=== PATIENT | female | born 1995 | race Caucasian/White ===

== ENCOUNTER → 2023-06-10 14:51 | Outpatient (CLI) | payer BC, SELFPAY ==
--- NOTE | ~2023-06-10 | US_ITS ---
EXAMINATION: US pelvic complete w TV DATE: 06/10/2023 15:27 INDICATION: Right lower quadrant abdomen pain Comparison:No prior studies for comparison. TECHNIQUE: Multiple transabdominal and endovaginal sonographic images of the pelvis performed. FINDINGS: The uterus measures 8.6 x 5.3 x 4.3 cm. The endometrial complex measures 13 mm. The right ovary measures 2.5 x 2.6 x 3.4 cm and the left ovary measures 3.1 x 1.9 x 1.9 cm. There ar e small follicles in each ovary. Normal doppler signal in both ovaries. There is no free fluid in the pelvis. There are no abnormal masses seen on either side. IMPRESSION: 1. Mild endometrial thickening measuring 13 mm. Reviewed, dictated and finalized at location L.
== END ==
PROVIDERS: PCP Family Medicine; Visit Provider Nurse Practitioner Family
DX: R10.9 Unspecified abdominal pain (principal)
CPT/HCPCS: 76830; 76856

== ENCOUNTER 2024-07-22 09:47 | Outpatient (CLI) | payer BC, SELFPAY ==
--- NOTE | ~2024-07-22 | US_ITS ---
US OB limited DATE: 07/22/2024 10:45 INDICATION: Evaluate growth TECHNIQUE: Real-time imaging and Doppler analysis COMPARISON: 03/29/2024 obstetrical ultrasound FINDINGS: Live read intrauterine gestation, fetus in longitudinal lie, vertex presentation. Feta l heart rate 142 bpm. Posterior fundal placenta; no previa. Amniotic fluid index measures 13.6 cm, within normal limits. (5th percentile KATIE: 7.5 cm; 95th percen tile KATIE: 24.4 cm) BPD: 9.11 cm; 37 weeks 0 days Head circumference 33.01 cm; 37 weeks 4 days Abdominal circumference 33.03 cm; 37 weeks 0 days Femur length 6.88 cm; 35 weeks 2 days Composite age by Hadlock formula based upon the current measurements would be 36 weeks 5 days +/- 2 w eeks 4 days with ZAHRA of 08/14/2024, compared to 08/07/2024 based on last menstrual period. Estimated weight: 2984 +/- 448 g EFW-GP: 31.5% Head circumference/abdominal circumference 1.00, within normal range is 0.92, 1.06 Femur length/BPD 75.52, within normal range of 71.0-87.0 Femur length/abdominal circumference: 20.83, within normal range of 20.00-24.00 Femur length/head circumference 20.84, within normal range of 20.60-22.46 IMPRESSION: Normal amniotic fluid index of 13.6 cm Vertex presentation Estimated weight: 2984 +/- 448 g Reviewed, dictated and finalized at Location A. Reviewed, dictated and finalized at location A.
== END 2024-07-22 09:48 | disposition home or self-care (01) ==
LOC: MICIMG 09:48
PROVIDERS: PCP Family Medicine; Visit Provider Obstetrics & Gynecology
DX: Z34.90 Encounter for supervision of normal pregnancy, unspecified, unspecified trimester (principal)
CPT/HCPCS: 76815

== ENCOUNTER 2024-08-11 08:30 | Outpatient (RCR) | payer BC, SELFPAY ==
[2024-08-08 11:39] VITALS: BP 113/64; PULSE 81
--- NOTE | ~2024-08-11 | US_ITS ---
EXAMINATION: US OB BPP wo non-stress DATE: 08/11/2024 10:00 INDICATION: . Postdates. TECHNIQUE: Real-time pelvic ultrasound was performed. COMPARISON: Ultrasound 07/22/2024 FINDINGS: There is a single living fetus in vertex presentation. The cervical length is 3.5 cm on transabdomina l images, which is normal. The placenta is fundal. heart rate is 153 beats per minute (bpm). Biophysical profile performed by the technologist: breathing (30 sec sustained breathing in 30 minutes): 2 out of 2 movement (3 gross body movements in 30 minutes): 2 out of 2 tone (one episode of bqfshms-zcxokttzd-blbwyah limb movement): 2 out of 2 Amniotic fluid pocket (2 cm): 2 out of 2 Total score: 8 out of 8 IMPRESSION: 1. Single living fetus in vertex presentation. 2. Biophysical profile 8 out of 8. Reviewed, dictated and finalized at location A. MANAGER
[2024-08-11 10:00] VITALS: BP 101/61; PULSE 83
== END 2024-08-23 17:46 | disposition home or self-care (01) ==
LOC: ANHOBOP 08:30
PROVIDERS: PCP Family Medicine; Visit Provider Obstetrics & Gynecology
DX: O48.0 Post-term pregnancy (principal); Z3A.40 40 weeks gestation of pregnancy
CPT/HCPCS: 59025; 76819

== ENCOUNTER 2024-08-14 16:08 | Inpatient (IN) | payer BC, SELFPAY ==
[2024-08-14] VITALS (16 sets, daily range): BP systolic 100–115; BP diastolic 54–85; PULSE 54–78; TEMP 36.5–37.1; BMI 27.5
--- NOTE | 2024-08-14 16:57 | WPDANESEPP ---
Anes - Eval Pre Procedure Procedure: labor epidural Date/Time: 08/14/24 16:57 Surgeon: tati Preop Diagnosis: pain during labor Pre Op Diagnosis: IOL Patient Data Age: 29 Gender: F Height: Weight: Allergies Allergy/AdvReac Type Severity Reaction Status Date / Time No Known Allergies Allergy Verified 08/14/24 14:10 Home Medications Medication Instructions Recorded Confirmed Type vitamins-iron fumarate 65 1 tablet PO DAILY 01/11/24 08/14/24 History mg iron-folic acid 1 mg tablet Patient hx anesthesia problems: none Family hx anesthesia problems: none Results Review: All pre-operative results and documents have been reviewed as part of the pre-operative evaluation. ON LICENSE OF [facility] Past Medical History Medical History (Updated 08/14/24 @ 16:58 by Lorri Greer CRNA) Eczema IUP (intrauterine ), incidental Pectus excavatum Family History Family History Father Family history of mental disorder Mother Family history of migraine headaches Other Adopted Social History Social History Smoking status: Never smoker Tobacco type: cigarettes Second hand tobacco smoke exposure: No Alcohol intake: never Substance use: never Substance use type: marijuana Last use: 10/26/2023 Do You Feel Safe in your Home?: Yes Lack of Transportation: No Lack of Food: Never True Current Housing: I Have Housing Concerned About Future Housing: No Difficulty Paying Gas/Electric Bills: No Difficulty Paying for Meds: No Currently Unemployed: No Education: Master's Degree or Higher Difficulty w/ Childcare or Family Care: No Living arrangements: with family Additional living arrangements comments: single Occupation/Education: occupation Additional occupation/education comments: teacher Gender identity (if verbalized by the patient): Female Sexual Orientation (if Verbalized by the Patient): Straight or Heterosexual Spiritual care concerns: No Exam Day of Procedure 08/14/24 16:57
[2024-08-14 17:12] LABS: Basophils Percent Auto 0.3 % (0.2-1.2); Eosinophils Absolute Auto 0.1 K/mm3 (0-0.3); Eosinophils Percent Auto 0.9 % (0-4.4); Hematocrit 36.8 % (37.0-47.0); Immature Granulocyte Absolute 0.04 K/mm3 (0.00-0.031); Immature Granulocyte Percent A 0.4 % (0-0.5); Lymphocytes Absolute Auto 3.15 K/mm3 (0.9-3.2); Lymphocytes Percent Auto 27.6 % (18.3-44.2); Mean Corpuscular HGB Conc 35.3 g/dl (32-36); Mean Corpuscular Hemoglobin 31.3 pg (26-34); Mean Corpuscular Volume 88.7 fl (80-100); Mean Platelet Volume 10.7 fl (7.4-10.4); Monocytes Absolute Auto 0.8 K/mm3 (0.1-0.6); Monocytes Percent Auto 6.8 % (2.6-8.5); Neutrophils Absolute Auto 7.3 K/mm3 (1.3-6.7); Platelet Count Result 206 k/mm3 (150-375); Red Blood Count 4.15 M/mm3 (4.2-5.4); Red Cell Distribution Width 13.8 % (11.5-14.5); White Blood Count 11.4 K/mm3 (4.5-10.0)
[2024-08-14] MEDS: DINOPROSTONE 10 MG VAG INSERT VAGINAL (17:15)
--- NOTE | 2024-08-14 17:36 | LDADM ---
This patient, Nakia Marques, was admitted to Labor/Delivery/Recovery 109 on 08/14/24 at 16:08. Plans for labor, pain management and were discussed with patient. Patient/family oriented to hospital policies and general routines including ID bracelet, bed and alarms, visiting hours, pain management, procedures, bathroom and other care routines, personal items, smoking policy, room service/diet and guest tray routines, security routines, and visiting hours. Patient/Family are encouraged to report perceived risks to care and to ask questions if they do not understand what they are told or what they should do. See OBIX for further documentation.
[2024-08-14 18:02] LABS: HIV 1/2 Ab P24 Ag Result Negative (Negative)
[2024-08-14 21:03] LABS: Rapid Plasma Reagin Non-Reactive (NonReactive)
[2024-08-15] VITALS (127 sets, daily range): BP systolic 70–117; BP diastolic 37–81; PULSE 33–98; RESP 16; TEMP 36.1–37.2; O2SAT 88–100
[2024-08-15] MEDS: LACTATED RINGERS 500 ML 999 ML IV CONT (00:43)
[2024-08-15] MEDS: fentaNYL CITRATE INJ (*CRX) 100 MCG/2 ML VIAL 50 MCG IV PUSH (01:52)
[2024-08-15] MEDS: LACTATED RINGERS 1,000 ML 125 ML IV CONT ×2 (04:00→09:18)
[2024-08-15] MEDS: ONDANSETRON INJ 4 MG/2 ML VIAL IV PUSH (04:45)
[2024-08-15] MEDS: OXYTOCIN 30 UNITS/NS 500 ML 30 UNITS/500 ML BAG 999 UNITS IV CONT (11:31)
--- NOTE | 2024-08-15 11:48 | WPDHPUPDATE1 ---
History and Physical Update Update Date/Time: 08/15/24 11:48 History and Physical has been reviewed, including an updated exam of the patient. There are NO changes in the patient's condition. Risks, benefits, and alternatives have been discussed and questions answered. Patient agrees to proceed with procedure.
--- NOTE | 2024-08-15 11:48 | WPDOBADMIT ---
Obstetrics - Admit Note Admission Note: record reviewed. No pertinent additions to the history and/or any subsequent changes in the physical findings that are not consistent with the expected course of the were found. Additions to the history and/or subsequent changes in the physical findings follow. None.
--- NOTE | 2024-08-15 11:48 | PM.OBPRVD ---
OB - Vaginal Delivery Note Procedure Delivery date: 08/15/24 Events: Other (postdates ) Induction method: Per Cervidil Protocol Delivery augmentation: Rupture of Membranes Delivery monitor: External FHT and External Uterine Route of delivery: Episiotomy description: None Laceration Description: Vaginal Delivery repair: chromic Specimen: No Quantitative Blood Loss (ml): 300 Anesthesia type: Epidural Disposition: Floor Complications: No immediate complications Narrative: Patient prepped and draped in usual manner for this procedure. Maternal expulsive efforts readily delivered vertex over intact perineum. Nuchal cord x2 was noted and reduced. Rest of baby was delivered without difficulty, cord was clamped and cut after pulsation had ceased. Placenta delivered spontaneously and uterus was well contracted. Cervix vagina vulva were inspected with right vaginal wall laceration noted. This was approximated using 2-0 chromic in a running interlocking manner to approximate this tissue and rendered hemostatic. At this point the postop condition of mother and baby were both excellent. Baby Gestational Age by Date: 41 Infant gender: Male presentation: vertex position: Right Occiput Anterior Placenta delivery description: Spontaneous Cord Vessel Description: 3 Vessels, Nuchal Cord and Reduced
[2024-08-15] MEDS: WITCH HAZEL 40 PADS 1 PAD TOPICAL (14:00)
[2024-08-15] MEDS: BENZOCAINE 20% AER SPR (*SP) 56 GM CAN 1 SPRAY TOPICAL (14:00)
[2024-08-15] MEDS: ACETAMINOPHEN 325 MG TABLET 650 MG PO (19:15)
[2024-08-16 04:05] VITALS: BP 100/59; PULSE 65; RESP 16; TEMP 36.6; O2SAT 97
[2024-08-16] MEDS: IBUPROFEN 600 MG TABLET PO (04:25)
[2024-08-16 04:35] LABS: Hematocrit 35.6 % (37.0-47.0); Hemoglobin 12.1 g/dL (12.0-15.0)
[2024-08-16] MEDS: MULTIVIT/MIN/PREN/FOL AC/IRON TABLET 1 TAB PO (06:45)
[2024-08-16 07:55] VITALS: BP 87/47; PULSE 52; RESP 16; TEMP 36.6; O2SAT 97
--- NOTE | 2024-08-16 10:35 | PC.NURSE ---
Introductions were made, then consulted with patient to assess needs related to . Discussed with mother her?plans to feed?her and the?experience so far. She has some initial latch on tenderness but no pain throughout the feeding. She feels confident that is going well. We reviewed expected output depending on how old is. We also talked about discharge and reasons to stay the second night when it is your first baby. Resources provided for inpatient and outpatient services with the feeding sheet, mom/baby guide and name/number written on the communication board. Mother voiced understanding of information and will call if there is a request for assistance. Reported to the Primary RN.
--- NOTE | 2024-08-16 13:00 | PM.OBDSVD ---
DS: Admitting Diagnosis Discharge Date 08/16/2024 Admitting Diagnosis DS: Discharge Diagnosis Discharge Diagnosis (1) , delivered: Code(s): O80 - Encounter for full-term uncomplicated delivery Status: Acute OB - DS: Summary OB Procedures : None OB Procedures Intrapartum: Spontaneous Vag Delivery OB Procedures: : None Peripartum Data Laceration Description: Vaginal Episiotomy description: None Time Spent with Patient Time attestation: Total time spent providing and/or coordinating discharge services: DS: Data Data Completed and Pending Labs on day of discharge: Labs from last 24 hours 08/16/24 04:15 Hgb 12.1 Hct 35.6 L Discharge Plan Discharge Discharging Clinician: Arley Linder Patient Disposition: Home, Self-Care Activity: as tolerated Diet: as tolerated Patient Instructions: Antibiotic Form Stand Alone Forms: General Discharge Information Follow-up/Referrals: Arley Linder MD [Physician] - 3 Weeks Discharge Medications: New ibuprofen 600 mg Tablet 600 mg PO Q6H PRN (Reason: Cramping) Qty: 30 0RF Continued vit-iron fum-folic ac 65 mg iron- 1 mg tablet 1 tablet PO DAILY Date of admission: 08/14/24 16:08 Primary Care Provider: Molly Roberson Admitting Provider: Arley Linder Attending physician on admission: Arley Linder Condition: Stable
--- NOTE | 2024-08-16 13:41 | WPDANLDPN2 ---
Anes-Prog Note L&D Date/Time: 08/16/24 13:41 Comfortable throughout: labor and delivery Neuraxial method: epidural Epidural/Spinal procedure site: clean & non-tender Neuro status: Neuro function grossly intact. Cardiovascular status: normal Respiratory status: normal Airway patency: baseline Mental status: baseline Post-Op hydration status: normal Vital Signs: Last Vital Signs Temp 36.6 C 08/16/24 07:55 Pulse 52 L 08/16/24 07:55 Resp 16 08/16/24 07:55 BP 87/47 L 08/16/24 07:55 Pulse Ox 97 08/16/24 07:55 O2 Del Method Room Air 08/15/24 19:30 Pain score (VAS): 0/10 Post-procedural complaints: none Patient feedback: Patient satisfied with anesthetic care.
[2024-08-17 08:39] VITALS: BP 112/67; PULSE 60; RESP 16; TEMP 36.6; O2SAT 97
== END 2024-08-16 14:25 | disposition home or self-care (01) | DRG 806 ==
LOC: ANHLDR 18:04 → ANHOB2 08-15 14:34
PROVIDERS: Admitting Provider Obstetrics & Gynecology; PCP Family Medicine; Visit Provider Obstetrics & Gynecology
DX: O48.0 Post-term pregnancy (principal); O71.4 Obstetric high vaginal laceration alone; Z37.0 Single live birth; Z3A.41 41 weeks gestation of pregnancy; O69.81X0 Labor and delivery complicated by cord around neck, without compression, not applicable or unspecified
CPT/HCPCS: 36415; 85014; 85018; 85025; 86592; 86703; 86850; 86900; 86901; A9270; G0432; J2405; J2590; J2795; J3010; J7120